=== PATIENT | male | born 1960 | race Caucasian/White ===

== ENCOUNTER 2017-11-25 16:15 | Inpatient (IN) | payer BC, OTHER ==
[2017-11-25] MEDS ORDERED: SODIUM CHLORIDE 0.9% 1,000 ML IV STA (17:44)
--- NOTE | 2017-11-25 18:10 | ED ---
SOB HPI - General Source: patient, RN notes reviewed, old records reviewed Mode of arrival: ambulatory Limitations: no limitations <Krissy Huang - Last Filed: 11/25/17 19:10> <Maximino Pruett - Last Filed: 11/25/17 19:30> - General Chief Complaint: Shortness of Breath Stated Complaint: SOB Time Seen by Provider: 11/25/17 17:22 - History of Present Illness Initial Comments: 57-year-old male presenting emergency department today with chief complaint of shortness of breath on exertion worsening over the past few months. 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 He does not have any annual physicals. Patient states that today he noticed that he has no family history of heart disease that he is aware of. Patient reports that when he was walking up 1 flight of stairs he was extremely winded. Patient reports he's had no cough. Nonsmoker. He reports that on Monday he started to have an episode of diaphoresis and chest heaviness. He was currently in [place] for work so decided to wait until he came to his home to be evaluated. He states that today he has no symptoms including chest pain or shortness of breath however when he was walking to the bathroom he reports he felt really short of breath. Patient denies any recent fever, chills, back pain, abdominal pain, nausea vomiting, numbness or tingling, dysuria or hematuria, constipation or diarrhea, headaches or visual changes, or any other current symptoms (Krissy Huang) - Related Data Previous Rx's Medication Instructions Recorded Ibuprofen [Motrin] 600 mg PO Q8HR PRN #30 tab 04/12/17 Allergies Allergy/AdvReac Type Severity Reaction Status Date / Time aspirin Allergy Anaphylaxis Verified 11/25/17 16:19 Review of Systems ROS Other: All systems not noted in ROS Statement are negative. <Krissy Huang - Last Filed: 11/25/17 19:10> ROS Other: All systems not noted in ROS Statement are negative. <Maximino Pruett - Last Filed: 11/25/17 19:30> ROS Statement: Those systems with pertinent positive or pertinent negative responses have been documented in the HPI. Past Medical History Past Medical History: No Reported History History of Any Multi-Drug Resistant Organisms: None Reported Past Surgical History: Orthopedic Surgery Past Psychological History: No Psychological Hx Reported Smoking Status: Former smoker Past Alcohol Use History: Occasional Past Drug Use History: None Reported <Krissy Huang - Last Filed: 11/25/17 19:10> General Exam Limitations: no limitations General appearance: alert, in no apparent distress Head exam: Present: atraumatic, normocephalic, normal inspection Eye exam: Present: normal appearance, PERRL, EOMI. Absent: scleral icterus, conjunctival injection, periorbital swelling ENT exam: Present: normal exam, mucous membranes moist Neck exam: Present: normal inspection Respiratory exam: Present: normal lung sounds bilaterally. Absent: respiratory distress, wheezes, rales, rhonchi, stridor Cardiovascular Exam: Present: regular rate, normal rhythm, normal heart sounds. Absent: systolic murmur, diastolic murmur, rubs, gallop, clicks GI/Abdominal exam: Present: soft, normal bowel sounds. Absent: distended, tenderness, guarding, rebound, rigid Extremities exam: Present: normal inspection, full ROM, normal capillary refill. Absent: tenderness, pedal edema, joint swelling, calf tenderness Back exam: Present: normal inspection Neurological exam: Present: alert, oriented X3, CN II-XII intact Psychiatric exam: Present: normal affect, normal mood <Krissy Huang - Last Filed: 11/25/17 19:10> <Maximino Pruett - Last Filed: 11/25/17 19:30> - General Exam Comments Initial Comments: 57-year-old male. (Krissy Huang) Course <Krissy Huang - Last Filed: 11/25/17 19:10> <Maximino Pruett - Last Filed: 11/25/17 19:30> Vital Signs 11/25/17 11/25/17 11/25/17 16:17 18:04 19:11 Temperature 98.1 F 98.0 F Pulse Rate 57 L 50 L 52 L Respiratory 20 18 18 Rate Blood Pressure 119/67 119/71 116/67 O2 Sat by Pulse 97 98 96 Oximetry - Reevaluation(s) Reevaluation #1: 11/25/17 19:29 I did personally do a [id number] evaluation the patient did discuss the findings with him. Patient does demonstrate evidence of coronary artery disease. Patient will be admitted I did discuss case with Dr. Reid. (Maximino Pruett) Medical Decision Making - Lab Data Result diagrams: 11/25/17 18:00 11/25/17 18:00 - Radiology Data Radiology results: report reviewed <Krissy Huang - Last Filed: 11/25/17 19:10> - Lab Data Result diagrams: 11/25/17 18:00 11/25/17 18:00 <Maximino Pruett - Last Filed: 11/25/17 19:30> - Medical Decision Making 57-year-old male was x-rays from today with chief complaint of progressive dyspnea on exertion. Patient ports is been worse for the past week. Patient had an episode of chest heaviness on Monday. 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 Patient at this time denies any significant shortness of breath while resting in bed. However when he walked to the bathroom he was quite winded. Patient's vital signs have been stable. Heart rate seems to be somewhat low in the 55 beats per minute. Patient has had no previous cardiac examination including stress test. protonix. At this time with the risk factor of being a over age 50 and the concerning signs of dyspnea on exertion and left-sided chest heaviness would like to admit the Patient for observation for further evaluation and cardiology workup. Patient case discussed with Dr. Pruett who discussed the case with Dr. Reid. (Krissy Huang) - Lab Data Lab Results 11/25/17 11/25/17 11/25/17 Range/Units 18:00 18:00 18:00 WBC 5.4 (3.8-10.6) k/uL RBC 4.31 (4.30-5.90) m/uL Hgb 13.3 (13.0-17.5) gm/dL Hct 40.0 (39.0-53.0) % MCV 92.9 (80.0-100.0) fL MCH 30.9 (25.0-35.0) pg MCHC 33.2 (31.0-37.0) g/dL RDW 12.5 (11.5-15.5) % Plt Count 232 (150-450) k/uL Neutrophils % 53 % Lymphocytes % 38 % Monocytes % 4 % Eosinophils % 3 % Basophils % 0 % Neutrophils # 2.8 (1.3-7.7) k/uL Lymphocytes # 2.1 (1.0-4.8) k/uL Monocytes # 0.2 (0-1.0) k/uL Eosinophils # 0.2 (0-0.7) k/uL Basophils # 0.0 (0-0.2) k/uL PT (9.0-12.0) sec INR (<1.2) APTT (22.0-30.0) sec D-Dimer (<0.60) mg/L FEU Sodium 140 (137-145) mmol/L Potassium 4.5 (3.5-5.1) mmol/L Chloride 110 H (98-107) mmol/L Carbon Dioxide 21 L (22-30) mmol/L Anion Gap 9 mmol/L BUN 31 H (9-20) mg/dL Creatinine 1.40 H (0.66-1.25) mg/dL Est GFR (CKD-EPI)AfAm 64 (>60 ml/min/1.73 sqM) Est GFR (CKD-EPI)NonAf 56 (>60 ml/min/1.73 sqM) Glucose 93 (74-99) mg/dL Calcium 9.2 (8.4-10.2) mg/dL Magnesium 2.0 (1.6-2.3) mg/dL Total Bilirubin 0.8 (0.2-1.3) mg/dL AST 25 (17-59) U/L ALT 28 (21-72) U/L Alkaline Phosphatase 37 L (38-126) U/L Total Creatine Kinase 215 H (55-170) U/L CK-MB (CK-2) 1.4 (0.0-2.4) ng/mL CK-MB (CK-2) Rel Index 0.7 Troponin I <0.012 (0.000-0.034) ng/mL NT-Pro-B Natriuret Pep pg/mL Total Protein 6.5 (6.3-8.2) g/dL Albumin 3.8 (3.5-5.0) g/dL Urine Color Urine Appearance (Clear) Urine pH (5.0-8.0) Ur Specific [place] (1.001-1.035) Urine Protein (Negative) Urine Glucose (UA) (Negative) Urine Ketones (Negative) Urine Blood (Negative) Urine Nitrite (Negative) Urine Bilirubin (Negative) Urine Urobilinogen (<2.0) mg/dL Ur Leukocyte Esterase (Negative) Urine WBC (0-5) /hpf Ur Squamous Epith Cells (0-4) /hpf Amorphous Sediment (None) /hpf Urine Mucus (None) /hpf 11/25/17 11/25/17 11/25/17 Range/Units 18:00 18:00 18:25 WBC (3.8-10.6) k/uL RBC (4.30-5.90) m/uL Hgb (13.0-17.5) gm/dL Hct (39.0-53.0) % MCV (80.0-100.0) fL MCH (25.0-35.0) pg MCHC (31.0-37.0) g/dL RDW (11.5-15.5) % Plt Count (150-450) k/uL Neutrophils % % Lymphocytes % % Monocytes % % Eosinophils % % Basophils % % Neutrophils # (1.3-7.7) k/uL Lymphocytes # (1.0-4.8) k/uL Monocytes # (0-1.0) k/uL Eosinophils # (0-0.7) k/uL Basophils # (0-0.2) k/uL PT 10.3 (9.0-12.0) sec INR 1.1 (<1.2) APTT 22.7 (22.0-30.0) sec D-Dimer 0.55 (<0.60) mg/L FEU Sodium (137-145) mmol/L Potassium (3.5-5.1) mmol/L Chloride (98-107) mmol/L Carbon Dioxide (22-30) mmol/L Anion Gap mmol/L BUN (9-20) mg/dL Creatinine (0.66-1.25) mg/dL Est GFR (CKD-EPI)AfAm (>60 ml/min/1.73 sqM) Est GFR (CKD-EPI)NonAf (>60 ml/min/1.73 sqM) Glucose (74-99) mg/dL Calcium (8.4-10.2) mg/dL Magnesium (1.6-2.3) mg/dL Total Bilirubin (0.2-1.3) mg/dL AST (17-59) U/L ALT (21-72) U/L Alkaline Phosphatase (38-126) U/L Total Creatine Kinase (55-170) U/L CK-MB (CK-2) (0.0-2.4) ng/mL CK-MB (CK-2) Rel Index Troponin I (0.000-0.034) ng/mL NT-Pro-B Natriuret Pep 184 pg/mL Total Protein (6.3-8.2) g/dL Albumin (3.5-5.0) g/dL Urine Color Yellow Urine Appearance Turbid (Clear) Urine pH 5.5 (5.0-8.0) Ur Specific [place] 1.030 (1.001-1.035) Urine Protein Trace H (Negative) Urine Glucose (UA) Negative (Negative) Urine Ketones Trace H (Negative) Urine Blood Negative (Negative) Urine Nitrite Negative (Negative) Urine Bilirubin Negative (Negative) Urine Urobilinogen 3.0 (<2.0) mg/dL Ur Leukocyte Esterase Negative (Negative) Urine WBC 1 (0-5) /hpf Ur Squamous Epith Cells <1 (0-4) /hpf Amorphous Sediment Rare H (None) /hpf Urine Mucus Rare H (None) /hpf 11/25/17 18:10 EKG shows sinus bradycardia otherwise normal EKG. Ventricular rate of 53 bpm. Was 132. QRS duration 88 ms. QT QTc is 414/388. (Krissy Huang) - Radiology Data Chest x-rays negative for any acute crying upon my process. (Krissy Huang) Disposition Is patient prescribed a controlled substance at d/c from ED?: No When asked, does pt state using other controlled substances?: No If prescribed controlled substance>3 days was MAPS reviewed?: No If opioid is for acute pain is fill amount 7 days or less?: No If Rx opioid, was Start Talking consent form obtained?: No Time of Disposition: 19:13 <Krissy Huang - Last Filed: 11/25/17 19:10> <Maximino Pruett - Last Filed: 11/25/17 19:30> Clinical Impression: Dyspnea on exertion Disposition: ADMITTED IP TO THIS HOSP Condition: Stable Referrals: Stephy Frederick MD [Primary Care Provider] - 1-2 days
[2017-11-25 18:18] LABS: Basophils % (A) 0 %; Eosinophils # (A) 0.2 k/uL (0-0.7); Eosinophils % (A) 3 %; HGB 13.3 gm/dL (13.0-17.5); Lymphocytes # (A) 2.1 k/uL (1.0-4.8); Lymphocytes % (A) 38 %; MCH 30.9 pg (25.0-35.0); MCHC 33.2 g/dL (31.0-37.0); MCV 92.9 fL (80.0-100.0); Mean Platelet Volume 7.7; Monocytes # (A) 0.2 k/uL (0-1.0); Monocytes % (A) 4 %; Neutrophils # (A) 2.8 k/uL (1.3-7.7); Neutrophils % (A) 53 %; Platelet Count 232 k/uL (150-450); RBC 4.31 m/uL (4.30-5.90); RDW 12.5 % (11.5-15.5); WBC 5.4 k/uL (3.8-10.6)
--- NOTE | 2017-11-25 18:24 | XR ---
EXAMINATION TYPE: XR chest 2V DATE OF EXAM: 11/25/2017 COMPARISON: 12/22/2014 HISTORY: Difficulty breathing TECHNIQUE: Frontal and lateral views of the chest are obtained. FINDINGS: There is no focal air space opacity, pleural effusion, or pneumothorax seen. The cardiac silhouette size is within normal limits. The osseous structures are intact. Mild multilevel degener ative changes of thoracic spine are noted. Posttraumatic changes of the distal left clavicle are unch anged from the prior and healed. Prior fracture deformity of multiple right ribs are also seen. IMPRESSION: No acute cardiopulmonary process.
[2017-11-25 18:28] LABS: Albumin 3.8 g/dL (3.5-5.0); Calcium 9.2 mg/dL (8.4-10.2); Potassium 4.5 mmol/L (3.5-5.1); Total Bilirubin 0.8 mg/dL (0.2-1.3); Total Protein 6.5 g/dL (6.3-8.2)
[2017-11-25 18:32] LABS: INR 1.1 (<1.2)
[2017-11-25 18:33] LABS: D-Dimer 0.55 mg/L FEU (<0.60); Partial Thromboplastin Time 22.7 sec (22.0-30.0); Prothrombin Time 10.3 sec (9.0-12.0)
[2017-11-25 18:39] LABS: Amorphous Sediment,Urine Rare /hpf; Appearance,Urine Turbid (Clear); Bilirubin,Urine Negative (Negative); Blood,Urine Negative (Negative); Color,Urine Yellow; Glucose,Urine (UA) Negative (Negative); Ketones,Urine Trace (Negative); Leukocyte Esterase,Urine Negative (Negative); Mucus,Urine Rare /hpf; Nitrite,Urine Negative (Negative); PH, Urine 5.5 (5.0-8.0); Protein,Urine Trace (Negative); Squamous Epithelial Cell,Urine <1 /hpf (0-4); WBC,Urine 1 /hpf (0-5)
[2017-11-25 18:41] LABS: Creatine Kinase 215 U/L (55-170)
[2017-11-25 18:54] LABS: Creatine Kinase MB 1.4 ng/mL (0.0-2.4); Troponin I <0.012 ng/mL (0.000-0.034)
[2017-11-25] MEDS ORDERED: NITROGLYCERIN SL TABS 0.4 MG TAB SUBLINGUAL PRN (19:13)
[2017-11-25 21:09] VITALS: BMI 28.2
[2017-11-26 00:26] LABS: Creatine Kinase 169 U/L (55-170)
[2017-11-26 00:39] LABS: Creatine Kinase MB 1.1 ng/mL (0.0-2.4); Troponin I <0.012 ng/mL (0.000-0.034)
[2017-11-26 07:35] LABS: Cholesterol 194 mg/dL (<200); HDL Cholesterol 31 mg/dL (40-60); LDL Cholesterol,Calculated 109 mg/dL (0-99); Triglycerides 269 mg/dL (<150)
[2017-11-26 07:41] LABS: Creatine Kinase 136 U/L (55-170)
[2017-11-26 07:54] LABS: Creatine Kinase MB 1.1 ng/mL (0.0-2.4); Troponin I <0.012 ng/mL (0.000-0.034)
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
[2017-11-26 08:59] LABS: Calcium 8.9 mg/dL (8.4-10.2); Potassium 4.3 mmol/L (3.5-5.1)
[2017-11-26] MEDS ORDERED: ASPIRIN 325 MG TAB PO SCH (09:00)
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
[2017-11-26] MEDS ORDERED: ACETAMINOPHEN TAB 325 MG TAB PO PRN (17:59)
[2017-11-26] MEDS: ENOXAPARIN 40 MG/0.4 ML SYRINGE SQ SCH (18:12)
--- NOTE | 2017-11-27 09:59 | ECHOF ---
Referral Reason:dyspnea MEASUREMENTS -------- HEIGHT: 188.0 cm WEIGHT: 99.8 kg BP: 104/46 RVIDd: 3.3 cm (< 3.3) IVSd: 0.9 cm (0.6 - 1.1) LVIDd: 4.8 cm (3.9 - 5.3) LVPWd: 1.0 cm (0.6 - 1.1) IVSs: 1.6 cm LVIDs: 3.0 cm LVPWs: 1.3 cm LA Diam: 3.6 cm (2.7 - 3.8) LAESV Index (A-L): 35.95 ml/m Ao Diam: 3.3 cm (2.0 - 3.7) AV Cusp: 2.3 cm (1.5 - 2.6) MV EXCURSION: 19.089 mm (> 18.000) MV EF SLOPE: 142 mm/s (70 - 150) EPSS: 0.6 cm MV E Den: 0.92 m/s MV DecT: 193 ms MV A Den: 0.72 m/s MV E/A Ratio: 1.28 RAP: 5.00 mmHg RVSP: 36.80 mmHg FINDINGS -------- Sinus rhythm. This was a technically good study. The left ventricular size is normal. Left ventricular wall thickness is normal. Overall left vent ricular systolic function is normal with, an EF between 60 - 65 %. The right ventricle is mildly enlarged. LA is moderately dilated 34-39 ml/m2 The right atrium is normal in size. The aortic valve is trileaflet and appears structurally normal. There is trace mitral regurgitation. Mild tricuspid regurgitation present. There is mild pulmonary hypertension. The right ventricular systolic pressure, as measured by Doppler, is 36.80mmHg. Trace/mild (physiologic) pulmonic regurgitation. The aortic root size is normal. Normal inferior vena cava with normal inspiratory collapse consistent with estimated right atrial pre ssure of 5 mmHg. The inferior vena cava is mildly dilated. There is no pericardial effusion. CONCLUSIONS -------- 1. Sinus rhythm. 2. This was a technically good study. 3. The left ventricular size is normal. 4. Left ventricular wall thickness is normal. 5. Overall left ventricular systolic function is normal with, an EF between 60 - 65 %. 6. The right ventricle is mildly enlarged. 7. LA is moderately dilated 34-39 ml/m2 8. The right atrium is normal in size. 9. The aortic valve is trileaflet and appears structurally normal. 10. There is trace mitral regurgitation. 11. Mild tricuspid regurgitation present. 12. There is mild pulmonary hypertension. 13. The right ventricular systolic pressure, as measured by Doppler, is 36.80mmHg. 14. Trace/mild (physiologic) pulmonic regurgitation. 15. The aortic root size is normal. 16. Normal inferior vena cava with normal inspiratory collapse consistent with estimated right atrial pressure of 5 mmHg. 17. The inferior vena cava is mildly dilated. 18. There is no pericardial effusion. TRAVEL SERVICE CONSULTANT: Gemma Shields RDCS
[2017-11-27] MEDS: ENOXAPARIN 40 MG/0.4 ML SYRINGE SQ SCH (10:04)
--- NOTE | 2017-11-27 10:37 | ECHOS ---
STRESS ECHOCARDIOGRAM DATE OF SERVICE: 11/27/2017 INDICATIONS: Chest pain. MEDICATIONS: BASELINE HEART RATE: 61 BASELINE BLOOD PRESSURE: 104/46 MAXIMUM HEART RATE: 148 MAXIMUM BLOOD PRESSURE: 144/41 85% MPHR: 139 100% MPHR: 163 METS: 10 MAXIMUM STAGE REACHED: III TOTAL EXERCISE TIME: 9 minutes CLINICAL INFORMATION: Baseline EKG shows sinus rhythm, normal axis, normal intervals. Patient exercised on Jovani protocol for a total of 9 minutes achieving 10 METs, 91% of predicted maximal heart rate without chest pain. At peak exercise, there was [address]-segment depression in the inferolateral leads. The test was stopped due to shortness of breath. Baseline echo shows normal left ventricular size, wall motion and systolic function. Postexercise there is normal hyperdynamic response of all segments of myocardium noted. CONCLUSIONS: 1. Good exercise tolerance. 2. Abnormal stress test by EKG criteria. 3. No exercise-induced wall motion abnormalities. MMODL / IJN: [id number] /
--- NOTE | 2017-11-27 10:50 | P.PN ---
Subjective Mr. Shah is seen and examined in no acute distress. He denies any further symptoms of chest pain or shortness of breath since admission. Telemetry tracings have been unremarkable. Cardiac enzymes negative 3, repeat creatinine 1.16. LDL 109, HDL 31, triglycerides 269 and total cholesterol 194. Blood pressure 134/75 heart rate 54 afebrile maintaining oxygen saturation on room air. Stress echocardiogram this morning. During his test he developed ST depression in the lateral leads with shortness of breath, echocardiogram images were normal indicating an abnormal stress test by EKG criteria with normal wall motion. Objective - Vital Signs Vital signs: Vital Signs Temp 97.5 F L 11/27/17 08:38 Pulse 54 L 11/27/17 08:38 Resp 18 11/27/17 08:38 BP 134/75 11/27/17 08:38 Pulse Ox 98 11/27/17 08:38 Intake & Output 11/26/17 11/27/17 11/27/17 18:59 06:59 18:59 Intake Total 680 Balance 680 Weight 99.79 kg Intake: Oral 480 Other 200 Other: Voiding Method Toilet Toilet Toilet # Voids 1 - Exam GENERAL: Well-appearing, well-nourished and in no acute distress. NECK: Supple without JVD or thyromegaly. LUNGS: Breath sounds clear to auscultation bilaterally. Respiration equal and unlabored. No wheezes, rales or rhonchi. HEART: Regular rate and rhythm without murmurs, rubs or gallops. S1 and S2 heard. EXTREMITIES: Normal range of motion, no edema. No clubbing or cyanosis. Peripheral pulses intact. - Labs CBC & Chem 7: 11/25/17 18:00 11/26/17 07:09 Assessment and Plan Assessment: ASSESSMENT Unstable angina, acute coronary event has been ruled out. Acute kidney injury, resolved. Dyslipidemia PLAN Stress test results indicate no wall motion abnormality post-exercise. Stable for discharge home with prescription for SL nitro and follow up appointment with Dr. Rodriguez made for Monday at 4pm. Nurse Practitioner note has been reviewed, I agree with a documented findings and plan of care. Patient was seen and examined.
[2017-11-27 12:03] VITALS: BP 118/76; PULSE 62; RESP 16; TEMP 97.9
--- NOTE | 2017-11-27 14:00 | P.DS ---
Providers Date of admission: 11/25/17 19:29 Expected date of discharge: 11/27/17 Attending physician: Margarito Reid Consults: 11/25/17 19:13 Consult Physician Urgent Consulting Provider: Kris Rodriguez Consult Reason/Comments: Unstable Angina, Dyspnea on Exertion Do you want consulting provider notified?: Yes Primary care physician: Stephy Frederick Hospital Course: Discharge diagnosis 1. Chest pain likely related to unstable angina, acute coronary event has been ruled out. Troponins negative 3 sets. Patient underwent stress echo which showed no wall motion abnormality. It did show abnormal stress test by EKG criteria. Noted a [address] segment depression in the inferior lateral leads. Patient has been seen evaluated by cardiology there is no evidence of an acute CA. They have cleared him for discharge and he'll follow up with Dr. Rodriguez on Monday. A break given him a prescription for nitro 2. Acute kidney injury possibly related to dehydration and NSAIDs. Discontinue Motrin. Improved with IV fluids 3. Hyperlipidemia: Recommend lifestyle modifications such as a low-cholesterol diet and increasing exercise activity to decrease LDL cholesterol. LDL 109 HCL 31 cholesterol 194 triglycerides 269 Hospital course Mr. Shah is a pleasant 57 year old male with no significant past medical history. He denies coronary artery disease, hypertension, dyslipidemia or diabetes mellitus. He is a nonsmoker and takes no daily medications. We've been asked to see him in consultation for symptoms of chest pain. He complains of exertional shortness of breath and chest pressure intermittently over the previous month. His symptoms have been getting progressively worse. On Monday in particular he was working and he felt intense shortness of breath, dizziness and pressure in his chest. He describes as a feeling of somebody stepping on his chest. His symptoms are associated with exertion and when he sits down to rest his symptoms seem to improve. He denies associated palpitations, nausea, vomiting or diaphoresis. He also denies PND or orthopnea. There is no radiation of the pain to the arm, neck, back or jaw. He 's had no further symptoms of chest discomfort, shortness of breath or dizziness since admission. Telemetry tracings have been unremarkable. Vital signs have been stable. EKG is bradycardia heart rate in the 50s. Chest x-ray is negative for an acute cardiopulmonary process. Laboratory data reviewed, cardiac enzymes negative 3, d-dimer normal, LDL 109, creatinine 1.4. When compared to old laboratory data he had a normal renal function in 2015. Patient's chest pain shortness breath have resolved. Patient seen evaluated by cardiology felt the patient may have unstable angina. Patient underwent a stress echo showing no stiff Gentz wall abnormality. There were some EKG changes. Patient will be followed closely by cardiology in the outpatient setting. Patient has an appointment with cardiology on Monday. Also note echo showed EF of 60-65%. Patient is medically stable for discharge. Please refer to chart for any further details. I performed an examination of the patient and discussed their management with the physician Knocker Off. I have reviewed the Physician Knocker Off's notes and agree with the documented findings and plan of care Patient Condition at Discharge: Stable Plan - Discharge Summary Discharge Rx Participant: Yes New Discharge Prescriptions: New Nitroglycerin Sl Tabs [Nitrostat] 0.4 mg SUBLINGUAL Q5M PRN #1 bottle PRN Reason: Chest pain Discontinued Ibuprofen [Motrin] 600 mg PO Q8HR PRN #30 tab PRN Reason: Pain Discharge Medication List Nitroglycerin Sl Tabs [Nitrostat] 0.4 mg SUBLINGUAL Q5M PRN #1 bottle 11/27/17 [ Rx] Follow up Appointment(s)/Referral(s): Kris Rodriguez MD [STAFF PHYSICIAN] - 11/29/17 4:00 pm Stephy Frederick MD [Primary Care Provider] - 1 Week Patient Instructions/Handouts: Chest Pain (GEN), Dyspnea (GEN) Activity/Diet/Wound Care/Special Instructions: Diet: cardiac Activity: as tolerated Discharge Disposition: HOME SELF-CARE
== END 2017-11-27 14:03 | disposition home or self-care (01) | DRG 311 ==
LOC: EC 16:15 → 3SUR 19:13 → OBSVTOIN 19:29 → 3SUR 20:35 → 3OBS 11-27 07:51
PROVIDERS: ADMIT Internal Medicine; ATTEND Internal Medicine
DX: I20.0 Unstable angina (principal); N17.9 Acute kidney failure, unspecified; R06.00 Dyspnea, unspecified; E78.5 Hyperlipidemia, unspecified; E86.0 Dehydration; T39.395A Adverse effect of other nonsteroidal anti-inflammatory drugs [NSAID], initial encounter; Z87.891 Personal history of nicotine dependence; Z83.3 Family history of diabetes mellitus
CPT/HCPCS: 36415; 71046; 80048; 80053; 80061; 81001; 82550; 82553; 83735; 83880; 84484; 85025; 85379; 85610; 85730; 93005; 93306; 93351; 96360; 99285

== ENCOUNTER 2017-12-08 06:18 | Day surgery (SDC) | payer BC ==
[2017-12-04 14:21] VITALS: BMI 28.8
[2017-12-08] MEDS ORDERED: ALPRAZolam 0.25 MG TAB PO PRN (06:21)
[2017-12-08] MEDS ORDERED: SODIUM CHLORIDE 0.9% 1,000 ML in EMPTY BAG 1 BAG IV ONE (06:21)
[2017-12-08] MEDS ORDERED: ALPRAZolam 0.5 MG TAB PO PRN (06:21)
[2017-12-08] MEDS ORDERED: NITROGLYCERIN SL TABS 0.4 MG TAB SUBLINGUAL PRN ×2 (06:21→08:45)
[2017-12-08] MEDS ORDERED: ATORVASTATIN 80 MG TAB PO ONE (07:00)
[2017-12-08] MEDS ORDERED: diphenhydrAMINE 50 MG/ML 1 ML VIAL ONE (07:38)
[2017-12-08] MEDS ORDERED: fentaNYL (PF) 50 MCG/ML 2 ML AMP ONE (07:38)
[2017-12-08] MEDS ORDERED: VERAPAMIL 2.5 MG/ML 2 ML AMP ONE (07:38)
[2017-12-08] MEDS ORDERED: fentaNYL (PF) 50 MCG/ML 2 ML AMP IV ONE (07:45)
[2017-12-08] MEDS ORDERED: diphenhydrAMINE 50 MG/ML 1 ML VIAL IVP ONE (07:45)
[2017-12-08] MEDS ORDERED: MIDAZOLAM 2 MG/2 ML VIAL ONE (07:46)
[2017-12-08] MEDS ORDERED: LIDOCAINE 2% INJ 20 MG/ML SQ ONE (07:47)
[2017-12-08] MEDS ORDERED: MIDAZOLAM 2 MG/2 ML VIAL IV ONE (07:48)
[2017-12-08] MEDS ORDERED: VERAPAMIL SYRINGE (5 MG/10 ML) INTRAARTER ONE (07:49)
[2017-12-08] MEDS ORDERED: TICAGRELOR 90 MG TAB ONE (07:57)
[2017-12-08] MEDS ORDERED: IOPAMIDOL-370 50ML BTL INJ ONE (08:00)
[2017-12-08] MEDS ORDERED: TICAGRELOR 90 MG TAB PO ONE (08:05)
[2017-12-08] MEDS ORDERED: BIVALIRUDIN BOLUS 250 MG/50 ML IV ONE (08:06)
[2017-12-08] MEDS ORDERED: ASPIRIN 81 MG ONE (08:08)
[2017-12-08] MEDS ORDERED: ASPIRIN 81 MG PO ONE (08:10)
[2017-12-08] MEDS ORDERED: BIVALIRUDIN 250 MG in SODIUM CHLORIDE 0.9% 50 ML IV ONE (08:11)
[2017-12-08] MEDS ORDERED: NITROGLYCERIN 1000MCG/10ML SYRINGE INTRACORON ONE (08:13)
[2017-12-08] MEDS ORDERED: IOPAMIDOL-370 125ML BTL INJ ONE (08:20)
[2017-12-08] MEDS ORDERED: IOPAMIDOL-370 100ML BTL INJ ONE (08:30)
[2017-12-08] MEDS ORDERED: ATROPINE SULFATE 0.1 MG/ML 10ML SYRINGE IV PRN (08:45)
[2017-12-08] MEDS ORDERED: SODIUM CHLORIDE 0.9% 1,000 ML IV SCH (08:45)
[2017-12-08] MEDS ORDERED: MAG HYDROX/AL HYDROX/SIMETH 30 ML CUP PO PRN (08:45)
[2017-12-08] MEDS ORDERED: ZOLPIDEM 5 MG TAB PO PRN (08:45)
[2017-12-08] MEDS ORDERED: RX INFO: IV CONTRAST WAS GIVEN 1 EACH MISC MISCELLANE PRN (08:45)
--- NOTE | 2017-12-08 09:09 | CC ---
CARDIAC CATHETERIZATION REPORT Mr. Shah is a 57-year-old male who has been complaining of symptoms of progressive dyspnea and episode of chest discomfort. He underwent a stress test where he had a [address]-segment depression at peak exercise. He had no evidence of segmental wall motion abnormality on his echo, but because of his persistent symptoms recommendation was made regarding cardiac catheterization. The procedure as well as the risks and the complication were discussed with the patient who is in full understanding and agreement. 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 Using Xylocaine anesthesia in the Seldinger technique, 6-Sri [place]ankan sheath was introduced in the right radial artery. Selective right and left coronary angiography performed using 5-Sri [place]ankan 3.5 bend right and left Juan catheters. Multiple views of the coronary artery including hemiaxial views were obtained. Following that, a 5-S[place]ankan tight pigtail catheter was introduced in the left ventricle and a 30-degree DAUGHERTY view of the left ventricle was obtained. Following that, catheters were removed. Images were reviewed. FINDINGS: LEFT MAIN: This is a large-sized vessel bifurcating left circumflex, left anterior descending artery. Left main coronary artery has no evidence of high-grade stenosis. LEFT ANTERIOR DESCENDING ARTERY: This is a large-sized vessel reaching toward the apex, tapers down the distal third giving rise to 2 diagonal branches. Proximal LAD at the takeoff of the first septal superintendent general has a 70% stenosis. There is another 80% stenosis at the takeoff of the first diagonal branch. The rest of the vessel has no high-grade stenosis. LEFT CIRCUMFLEX: This is a nondominant vessel giving rise to 2 obtuse marginal branches. The first obtuse marginal branch proximal segment has about 30% to 40% plaque. The second obtuse marginal branch is small without any evidence of high-grade stenosis. RIGHT CORONARY ARTERY: This is a large dominant vessel bifurcating PDA and posterolateral segment branches the right PDA reaches toward the inferoapical wall. The right coronary artery in mid segment has mild intimal disease. The PDA in the mid segment has a 50% to 60% plaque. The rest of the vessel has no evidence of high-grade stenosis. LEFT VENTRICULOGRAM: Left ventriculogram is performed in 30-degree DAUGHERTY view and revealed normal left ventricular size and systolic function. Ejection fraction is 60%. There was no significant mitral regurgitation. HEMODYNAMICS: There was no gradient across the aortic valve. The left ventricular end- diastolic pressure was 14 to 16 mmHg. CONCLUSION: 1. Significant stenosis in the proximal and mid left anterior descending artery. 2. Moderate disease in the right PDA. 3. Mild disease in the first obtuse marginal branch. 4. Normal left ventricular size and systolic function. RECOMMENDATION: In view of finding anatomy, I recommend proceeding with angioplasty and stenting. The procedure as well as the risks and complications were discussed with the patient who is in full understanding and agreement. MMODL / IJN: [id number] /
--- NOTE | 2017-12-08 09:15 | PTCA ---
PERCUTANEOUSTRANS CORORONARY ANGIOGRAPHY Mr. Shah is a 57-year-old male who presented with symptoms of progressive dyspnea and chest discomfort, had an abnormal stress electrocardiogram, underwent a coronary angiography was found to have critical stenosis involving the proximal and mid LAD. In view of that, recommendation was made regarding angioplasty and stenting. The procedure as well as the risks and the complications were discussed with the patient who is in full understanding and agreement. PROCEDURE: A 6-Japanese EBU 3.75 guiding catheter in the system. After cannulating the left main a 0.014 balanced medium weight J-wire was advanced across the lesion and positioned distally. Then a 2.5 x 15 mm Xience Alpine stent was deployed in the mid segment and postdilated at 14 atmospheres. Following that the balloon was removed then a 2.5 x 15 mm Xience Alpine stent was deployed in the proximal segment and postdilated 16 atmospheres. After the last inflation, after appropriate wait, the balloon and the guidewire were withdrawn back in the guiding catheter. Images were obtained, repeated. Those images reveal stable successful stenting. At that point, the guiding catheter, the balloon and the guidewire were removed. The sheath was removed. Hemostasis was obtained with deployment of a TR band. There was no immediate complication. Patient was returned to his room in stable condition. Of note, the patient received Angiomax per protocol as well as oral loading dose of Brilinta. He had chest discomfort and EKG changes with the inflation that resulted at the end of the procedure. He received intra-arterial verapamil at the start of the procedure. RESULTS: Successful stenting of the proximal left anterior descending artery with reduction of stenosis of 70% to 0% and successful stenting of the mid left anterior descending artery with reduction of stenosis from 80% to 0%. RECOMMENDATION: Patient will be continued on aspirin, Brilinta, and statin. The importance of dual antiplatelet treatment was discussed with the patient who is in full understanding and agreement. The patient carries a diagnosis of aspirin allergy over 20 years ago. 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 We will continue to observe that very closely. DURATION OF PROCEDURE: 45 minutes. MMODL / IJN: [id number] /
[2017-12-08] MEDS ORDERED: ATORVASTATIN 80 MG TAB PO SCH (21:00)
[2017-12-08] MEDS: TICAGRELOR 90 MG TAB PO SCH (21:21)
[2017-12-09 06:17] LABS: Calcium 8.8 mg/dL (8.4-10.2); Potassium 4.1 mmol/L (3.5-5.1)
[2017-12-09 07:37] VITALS: BP 138/84; PULSE 72; RESP 18; TEMP 97.1
[2017-12-09] MEDS: TICAGRELOR 90 MG TAB PO SCH (08:17)
[2017-12-09] MEDS ORDERED: ASPIRIN 81 MG PO SCH (09:00)
--- NOTE | 2017-12-09 10:07 | PN ---
PROGRESS NOTE Mr. Shah is a 57-year-old male who presented with an abnormal stress echocardiogram, symptoms of dyspnea and chest discomfort, underwent a cardiac catheterization, was found to have critical stenosis in the proximal mid LAD, underwent successful stenting of that vessel. He is doing well this morning. Ambulating without difficulty. He feels that his breathing and chest feels better compared with the prior to the intervention. He is continued on aspirin once a day 81 mg, Lipitor 80 mg, Brilinta 90 mg twice a day. PHYSICAL EXAMINATION: Blood pressure 138/80 with a heart in 60s. LUNGS: Clear. HEART: Regular rate and rhythm. S1, S2. No S3. No rub. ABDOMEN: Soft, nontender. EXTREMITIES: No edema. Right radial pulse intact. EKG revealed no acute changes. LAB DATA: BUN and creatinine of 17 and 1.2. Potassium 4.1. IMPRESSION: 1. Status post stenting of the LAD. 2. Hyperlipidemia. RECOMMENDATION: Patient will be discharged home today and followed as an outpatient. MMODL / SARAHN: [id number] /
== END 2017-12-09 09:37 | disposition home or self-care (01) ==
LOC: CATHCVL 06:18 → 6SEL 08:30 → CATHCVL 12-09 09:37
PROVIDERS: ATTEND Internal Medicine Interventional Cardiology
DX: I25.10 Atherosclerotic heart disease of native coronary artery without angina pectoris (principal); R00.1 Bradycardia, unspecified; R94.39 Abnormal result of other cardiovascular function study; E78.5 Hyperlipidemia, unspecified; G47.33 Obstructive sleep apnea (adult) (pediatric); F17.210 Nicotine dependence, cigarettes, uncomplicated; Z79.899 Other long term (current) drug therapy; Z88.6 Allergy status to analgesic agent; Z88.8 Allergy status to other drugs, medicaments and biological substances
CPT/HCPCS: 93458; 85347; 80048; C9600; C1769; C1887; C1874; J2001; J2250; J1200; J3010; J0583; Q9967 ×3

== ENCOUNTER → 2017-12-27 | Outpatient (CLI) | payer BC ==
[2017-12-27 09:54] LABS: Albumin 4.1 g/dL (3.5-5.0); Calcium 9.3 mg/dL (8.4-10.2); Potassium 4.4 mmol/L (3.5-5.1); Total Bilirubin 1.5 mg/dL (0.2-1.3); Total Protein 7.2 g/dL (6.3-8.2)
== END | disposition home or self-care (01) ==
LOC: LABWHC1 09:03
PROVIDERS: ATTEND Internal Medicine Interventional Cardiology
DX: E78.2 Mixed hyperlipidemia (principal)
CPT/HCPCS: 36415; 80053; 80061

== ENCOUNTER → 2018-08-23 | Outpatient (CLI) | payer BC ==
[2018-08-23 16:10] LABS: Albumin 4.3 g/dL (3.80-4.90); Albumin/Globulin Ratio 1.87 (1.60-3.17); Anion Gap 10.1 mmol/L (4.00-12.00); Calcium 9.5 mg/dL (8.7-10.3); Carbon Dioxide 24.9 mmol/L (21.6-31.8); Globulin 2.3 g/dL (1.6-3.3); LDL Cholesterol,Calculated 93.2 mg/dL (0.0-131.0); Potassium 4.4 mmol/L (3.5-5.5); Total Bilirubin 1.2 mg/dL (0.2-1.2); Total Protein 6.6 g/dL (6.2-8.2); VLDL Calculation 19.8 mg/dL (5.00-40.00)
== END | disposition home or self-care (01) ==
LOC: LABWHC1 08:04
PROVIDERS: ATTEND Internal Medicine Interventional Cardiology
DX: E78.2 Mixed hyperlipidemia (principal)
CPT/HCPCS: 36415; 80053; 80061

== ENCOUNTER → 2019-03-25 | Outpatient (CLI) | payer BC ==
[2019-03-25 11:32] LABS: African American GFR (CKD) 76.8 (60.0-200.0); Albumin/Globulin Ratio 1.74 (1.60-3.17); Anion Gap 6.9 mmol/L (4.00-12.00); BUN/Creat Ratio 16.67 Ratio (12.00-20.00); Calcium 9.3 mg/dL (8.7-10.3); Carbon Dioxide 24.1 mmol/L (21.6-31.8); Chol/HDL Ratio 3.11; Globulin 2.3 g/dL (1.6-3.3); LDL Cholesterol,Calculated 53.2 mg/dL (0.0-131.0); Non-African American GFR(CKD) 66.3 (60.0-200.0); Potassium 4.3 mmol/L (3.5-5.5); Total Bilirubin 1.3 mg/dL (0.2-1.2); Total Protein 6.3 g/dL (6.2-8.2); VLDL Calculation 20.8 mg/dL (5.00-40.00)
== END ==
LOC: LABWHC1 07:23
PROVIDERS: ATTEND Internal Medicine Interventional Cardiology
DX: E78.2 Mixed hyperlipidemia (principal)
CPT/HCPCS: 36415; 80053; 80061

== ENCOUNTER 2019-04-03 07:57 | Day surgery (SDC) | payer BC ==
[~2019-04-03 07:57] MED LIST: ALPRAZolam 0.25 MG TAB PO PRN; ALPRAZolam 0.5 MG TAB PO PRN; ATORVASTATIN 80 MG TAB PO STA; NITROGLYCERIN SL TABS 0.4 MG TAB SUBLINGUAL PRN; SODIUM CHLORIDE 0.9% 1,000 ML in EMPTY BAG 1 BAG IV ONE
[2019-04-03] MEDS ORDERED: SODIUM CHLORIDE 0.9% 1,000 ML IV ONE (08:27)
[2019-04-03 08:28] VITALS: RESP 16
[2019-04-03 08:40] LABS: Basophils # (A) 0.1 k/uL (0-0.2); Basophils % (A) 1 %; Eosinophils # (A) 0.3 k/uL (0-0.7); Eosinophils % (A) 4 %; HCT 43.2 % (39.0-53.0); HGB 15.1 gm/dL (13.0-17.5); Lymphocytes # (A) 2.5 k/uL (1.0-4.8); Lymphocytes % (A) 35 %; MCH 32.6 pg (25.0-35.0); MCV 93.1 fL (80.0-100.0); Monocytes # (A) 0.4 k/uL (0-1.0); Monocytes % (A) 5 %; Neutrophils # (A) 3.9 k/uL (1.3-7.7); Neutrophils % (A) 53 %; Platelet Count 262 k/uL (150-450); RBC 4.63 m/uL (4.30-5.90); WBC 7.3 k/uL (3.8-10.6)
[2019-04-03] MEDS ORDERED: VERAPAMIL 2.5 MG/ML 2 ML AMP ONE (08:43)
[2019-04-03] MEDS ORDERED: fentaNYL (PF) 50 MCG/ML 2 ML AMP ONE (08:43)
[2019-04-03] MEDS ORDERED: HEPARIN SODIUM 1,000 UN/ML (10ML VL) ONE (08:43)
[2019-04-03] MEDS ORDERED: LIDOCAINE 1% INJ 10MG/ML (20 ML MDV) ONE (08:43)
[2019-04-03] MEDS ORDERED: fentaNYL (PF) 50 MCG/ML 2 ML AMP IV ONE (09:30)
[2019-04-03] MEDS ORDERED: LIDOCAINE 1% INJ 10MG/ML (20 ML MDV) SQ ONE (09:34)
[2019-04-03] MEDS ORDERED: VERAPAMIL SYRINGE (5 MG/10 ML) INTRAARTER ONE (09:38)
[2019-04-03] MEDS ORDERED: BIVALIRUDIN BOLUS 250 MG/50 ML IV ONE (09:45)
[2019-04-03] MEDS ORDERED: BIVALIRUDIN 250 MG in SODIUM CHLORIDE 0.9% 50 ML IV ONE (09:48)
[2019-04-03] MEDS ORDERED: IOPAMIDOL-370 125ML BTL INJ ONE (10:02)
[2019-04-03] MEDS ORDERED: ATROPINE SULFATE 0.1 MG/ML 10ML SYRINGE IV PRN (10:18)
[2019-04-03] MEDS ORDERED: ZOLPIDEM 5 MG TAB PO PRN (10:18)
[2019-04-03] MEDS ORDERED: MAG HYDROX/AL HYDROX/SIMETH 30 ML CUP PO PRN (10:18)
[2019-04-03] MEDS ORDERED: RX INFO: IV CONTRAST WAS GIVEN 1 EACH MISC MISCELLANE PRN (10:18)
[2019-04-03] MEDS ORDERED: NITROGLYCERIN SL TABS 0.4 MG TAB SUBLINGUAL PRN (10:18)
[2019-04-03] MEDS ORDERED: SODIUM CHLORIDE 0.9% 1,000 ML IV SCH (10:30)
--- NOTE | 2019-04-03 11:36 | CC ---
CARDIAC CATHETERIZATION REPORT Mr. Shah is a 58-year-old male with known history of coronary artery disease, history of hyperlipidemia, who presented with symptoms of progressive dyspnea on exertion and occasional chest discomfort. In view of that, recommendation made regarding cardiac catheterization, the procedures, risks, and complication were discussed with the patient who is in full understanding and agreement. 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 Using Xylocaine anesthesia and Seldinger technique, a 6-Austrian sheath was introduced in the right radial artery. Selective right and left coronary angiography performed using 5-Austrian 3.5 bend right and left Juan catheter, multiple views of the coronary artery including hemiaxial views were obtained. Following that, a 5-Austrian tight pigtail catheter was introduced in the left ventricle and pressures were calculated. Following that, catheters were removed. Images were reviewed. FINDIN. LEFT MAIN: This is a large-sized vessel bifurcating into left circumflex, left anterior descending artery. Left main coronary artery has no evidence of obstructive coronary artery disease. 2. LEFT ANTERIOR DESCENDING ARTERY: This is a large-sized vessel, tapers down distal third, giving rise to 3 small diagonal branch. The stented segment in the proximal mid LAD are patent. There is mild 10%-20% plaque without any evidence of high-grade stenosis. 3. LEFT CIRCUMFLEX: This is a nondominant vessel, small in caliber, giving rise to one obtuse marginal branch. The proximal segment of the obtuse marginal branch has a 40% plaque. The rest of the vessel has no high-grade stenosis. 4. RIGHT CORONARY ARTERY: This is a large dominant vessel bifurcating distally into PDA and posterolateral segment branches. The mid right coronary artery has a 20% to 30% plaque. The mid distal RCA at the bend has an eccentric 80% plaque. The rest of the vessel has intimal disease without any evidence of high-grade stenosis. 5. LEFT VENTRICULOGRAM: Left ventriculogram is not performed. HEMODYNAMICS: There was no gradient across the aortic valve. The left ventricular end-diastolic pressure was 12-16 mmHg. CONCLUSION: 1. Critical stenosis in the mid distal segment of the right coronary artery. 2. Patent stent of the LAD. 3. Mild disease to moderate disease in the left circumflex. RECOMMENDATION: In view of finding anatomy, I recommend proceeding with angioplasty and stenting of the RCA. The procedures, risks,. and complication were discussed with the patient who is in full understanding and agreement. MMODL / IJN: [id number] /
--- NOTE | 2019-04-03 11:42 | PTCA ---
PERCUTANEOUSTRANS CORORONARY ANGIOGRAPHY Mr. Shah is a 58-year-old male with known history of coronary artery disease who presented with symptoms of progressive dyspnea, underwent cardiac catheterization, was found to have critical stenosis in the mid right coronary artery, and recommendation regarding stenting. The procedures, risks and complication were discussed with the patient who is in full understanding and agreement. PROCEDURE: A 6-Fijian FR4 guiding catheter introduced into the system. after cannulating the right coronary ostium, a 0.014 balanced medium weight J-wire was advanced across the lesion, positioned distally, then a 3.5 x 15 mm Xience Petrona stent was deployed, postdilated at 16 atmospheres. After the last inflation, after appropriate wait, the balloon and the guidewire were withdrawn back in the guiding catheter. Images were obtained and repeated. Those images reveal stable successful stenting. At that point, the guiding catheter, the balloon and the guidewire were removed, the sheath was removed. Hemostasis was obtained with deployment of a TR band. There was no immediate complication. Patient is returned to his room in stable condition. The patient had chest discomfort and EKG changes with the inflation that resolved at the end procedure. Used Angiomax per protocol. RESULTS: Successful stenting of the mid distal segment of the RCA with reduction of stenosis from 80% to 0%. RECOMMENDATION: Patient will be continued on aspirin, Plavix, beta oswald, MARK inhibitor, statin. The importance of dual antiplatelet treatment were discussed with the patient his family and they are in full understanding and agreement. Duration of procedure is 29 minutes. MMYANETH / SARAHN: [id number] /
--- NOTE | 2019-04-03 11:51 | LTR ---
DATE OF SERVICE: 04/03/2019 RE: AlyssaMarty Dear Dr. Frederick; I had the pleasure to perform cardiac catheterization, coronary angioplasty and stenting on Mr. Shah at [facility] on April 03 and a full copy of the procedure note will be forwarded to you. In brief, he was found to have critical stenosis involving the mid right coronary artery. Underwent successful stenting of that vessel. I am hopeful that his procedure will stabilize his statin and thank you again for allowing to participate in this patient's care. Please feel fee to call for any questions. Sincerely, yours, MD MARIANA AdamsonL / SARAHN: [id number] /
[2019-04-03 14:39] VITALS: BMI 30.5
[2019-04-03] MEDS ORDERED: ATORVASTATIN 80 MG TAB PO SCH (21:00)
[2019-04-04 08:00] LABS: Calcium 9.1 mg/dL (8.4-10.2); Potassium 4.5 mmol/L (3.5-5.1)
[2019-04-04 08:09] VITALS: BP 110/63; PULSE 68; TEMP 97.3
[2019-04-04] MEDS ORDERED: ASPIRIN 81 MG PO SCH (09:00)
[2019-04-04] MEDS ORDERED: CLOPIDOGREL 75 MG TAB PO SCH (09:00)
[2019-04-04] MEDS ORDERED: EZETIMIBE 10 MG TAB PO SCH (09:00)
--- NOTE | 2019-04-04 09:49 | PN ---
PROGRESS NOTE Mr. Shah is a 58-year-old male who underwent cardiac catheterization yesterday, was found to have significant stenosis in the mid right coronary artery with patent stent in the left anterior descending artery, underwent stenting with the mid right coronary artery. He is feeling well this morning, denying any chest pain. His breathing has been stable. He denies any dizziness, palpitation, no nausea. He continues on aspirin once a day, Lipitor 80 mg daily, Plavix 75 mg daily, Zetia 10 mg daily. PHYSICAL EXAMINATION: Blood pressure 110/60 with a heart rate in the 60s. LUNGS: Clear. HEART: Regular rate and rhythm. S1, S2. No S3. No rub. ABDOMEN: Soft, nontender. EXTREMITIES: No edema. EKG revealed no acute changes. LAB DATA: Lab data revealed BUN and creatinine 15, 1.14, potassium 4.5. IMPRESSION: 1. Status post stenting of the right coronary artery. 2. Hyperlipidemia. 3. Prior stenting of the LAD. RECOMMENDATION: Patient will be discharged home today and followed as an outpatient. MMODL / SARAHN: [id number] /
== END 2019-04-04 09:37 | disposition home or self-care (01) ==
LOC: CATHCVL 07:57 → 3SCARD 12:49 → CATHCVL 04-04 09:37
PROVIDERS: ATTEND Internal Medicine Interventional Cardiology
DX: I25.110 Atherosclerotic heart disease of native coronary artery with unstable angina pectoris (principal); E78.2 Mixed hyperlipidemia; G47.33 Obstructive sleep apnea (adult) (pediatric); Z95.5 Presence of coronary angioplasty implant and graft; Z87.891 Personal history of nicotine dependence; Z79.82 Long term (current) use of aspirin; Z79.899 Other long term (current) drug therapy; Z88.6 Allergy status to analgesic agent; Z91.048 Other nonmedicinal substance allergy status
CPT/HCPCS: 93458; 80048; 85025; C9600; C1769 ×2; C1887; C1874; C1894; J2001; J3010; J0583; Q9967

== ENCOUNTER → 2019-04-15 | Outpatient (CLI) | payer BC ==
[2019-04-15 17:29] LABS: Chol/HDL Ratio 3.33
== END | disposition home or self-care (01) ==
LOC: LABWHC1 08:11
PROVIDERS: ATTEND Nurse Practitioner Adult Health
DX: E78.2 Mixed hyperlipidemia (principal)
CPT/HCPCS: 36415; 80061

== ENCOUNTER → 2020-02-07 | Outpatient (CLI) | payer BC ==
[2020-02-07 19:30] LABS: African American GFR (CKD) 76.3 (60.0-200.0); Albumin/Globulin Ratio 1.6 (1.60-3.17); Anion Gap 8.7 mmol/L (4.00-12.00); BUN/Creat Ratio 18.33 Ratio (12.00-20.00); Calcium 8.9 mg/dL (8.7-10.3); Carbon Dioxide 24.3 mmol/L (21.6-31.8); Chol/HDL Ratio 3.43; Globulin 2.5 g/dL (1.6-3.3); LDL Cholesterol,Calculated 61.2 mg/dL (0.0-131.0); Non-African American GFR(CKD) 65.8 (60.0-200.0); Potassium 4.4 mmol/L (3.5-5.5); Total Bilirubin 1.7 mg/dL (0.2-1.2); Total Protein 6.5 g/dL (6.2-8.2); VLDL Calculation 23.8 mg/dL (5.00-40.00)
== END | disposition home or self-care (01) ==
LOC: LABWHC1 08:18
PROVIDERS: ATTEND Internal Medicine Interventional Cardiology
DX: E78.2 Mixed hyperlipidemia (principal)
CPT/HCPCS: 36415; 80053; 80061

== ENCOUNTER → 2020-04-15 | Outpatient (CLI) | payer BC ==
--- NOTE | 2020-04-16 08:26 | CT ---
EXAMINATION TYPE: CT cervical spine wo con DATE OF EXAM: 04/15/2020 COMPARISON: 04/12/2017 HISTORY: Neck pain, no known injury CT DLP: 673.8 mGycm CONTRAST: None CT of the cervical spine is performed in the axial plane at 2 mm thick sections. Reconstructed image s in the coronal, and sagittal plane are reviewed on the computer. No acute fractures are evident. Vertebral body alignment is normal. Spina bifida occulta of C1 is present. There is loss of disc height C5-6, C6-7.. Schmorl's nodes in the T1 superior endplate. Milder loss of disc height is present C3-4 C4-5 Vertebral body heights are preserved. No spinal canal stenosis is evident Foraminal narrowing is present due to uncovertebral joint hypertrophy on the left at C4-5 bilaterally at C5-6 and C6-7 greater on the left. IMPRESSIONS: 1. Degenerative disc changes greatest at C5-6 C6-7. 2. Uncovertebral joint hypertrophy causing foraminal narrowing greatest at left C5-6
== END | disposition home or self-care (01) ==
LOC: RADCTMAIN 16:36
PROVIDERS: ATTEND Physical Medicine & Rehabilitation
DX: M48.02 Spinal stenosis, cervical region (principal); M50.122 Cervical disc disorder at C5-C6 level with radiculopathy
CPT/HCPCS: 72125

== ENCOUNTER 2020-07-28 10:28 | Emergency (ER) | payer BC ==
[2020-07-28 10:45] VITALS: BP 116/79; PULSE 98; RESP 18; TEMP 100
[2020-07-28] MEDS ORDERED: ACETAMINOPHEN TAB 325 MG TAB PO STA (10:59)
--- NOTE | 2020-07-28 12:15 | XR ---
EXAMINATION TYPE: XR chest 2V DATE OF EXAM: 07/28/2020 COMPARISON: 11/25/2017 HISTORY: 59-year-old male cough and fever TECHNIQUE: PA and lateral views FINDINGS: Heart normal size. Aorta and pulmonary vasculature within normal limits. Subtle patchy opacity periph franco of the right upper lobe and in the periphery of the left base. No pleural effusion. IMPRESSION: Subtle patchy infiltrate periphery of the right upper lobe and at the left base. Early pneumonia incl uding possibility of COVID pneumonia not excluded.
--- NOTE | 2020-07-28 12:21 | ED ---
General Adult HPI - General Chief complaint: Upper Respiratory Infection Stated complaint: Nausea/cough/congestion Time Seen by Provider: 07/28/20 10:47 Source: patient Mode of arrival: ambulatory Limitations: no limitations - History of Present Illness Initial comments: 59-year-old male presents to the emergency department with a chief complaint of body aches, cough and a fever. Patient reports he has developed the symptoms about 4 days ago. Does report a productive cough with white sputum production. He denies any chest pain or shortness of breath. He reports taking Tylenol occasionally for the fever. He also reports a sore throat and rhinorrhea. Denies any nausea vomiting or diarrhea. Denies any leg swelling. States he tested yesterday for Covid but he is waiting for the results for several more days. - Related Data Home Medications Medication Instructions Recorded Confirmed Clopidogrel [Plavix] 75 mg PO DAILY 04/01/19 04/03/19 Ezetimibe [Zetia] 10 mg PO DAILY 04/01/19 04/03/19 Previous Rx's Medication Instructions Recorded Nitroglycerin Sl Tabs [Nitrostat] 0.4 mg SUBLINGUAL Q5M PRN #1 bottle 11/27/17 Aspirin 81 mg PO DAILY chew 12/09/17 Atorvastatin [Lipitor] 80 mg PO HS #90 tab 12/09/17 Allergies Allergy/AdvReac Type Severity Reaction Status Date / Time aspirin Allergy Anaphylaxis Verified 07/28/20 10:45 Review of Systems ROS Statement: Those systems with pertinent positive or pertinent negative responses have been documented in the HPI. ROS Other: All systems not noted in ROS Statement are negative. Past Medical History Past Medical History: Coronary Artery Disease (CAD) Additional Past Medical History / Comment(s): recent hospitalization related to SOB w/exertion History of Any Multi-Drug Resistant Organisms: None Reported Past Surgical History: Heart Catheterization, Heart Catheterization With Stent, Orthopedic Surgery Additional Past Surgical History / Comment(s): Left shoulder surgery. 2 cardiac stents to LAD in 2018, new stent placed 04/03/19 in RCA Past Anesthesia/Blood Transfusion Reactions: No Reported Reaction Date of Last Stent Placement:: t Past Psychological History: No Psychological Hx Reported Smoking Status: Never smoker Past Alcohol Use History: Occasional Past Drug Use History: None Reported - Past Family History Father Family Medical History: Diabetes Mellitus Mother Additional Family Medical History / Comment(s): Emphsema. General Exam Limitations: no limitations General appearance: alert, in no apparent distress Head exam: Present: atraumatic, normocephalic, normal inspection Eye exam: Present: normal appearance, PERRL, EOMI Pupils: Present: normal accommodation ENT exam: Present: normal exam, normal oropharynx, mucous membranes moist, TM's normal bilaterally, normal external ear exam Neck exam: Present: normal inspection, full ROM. Absent: tenderness, lymphadenopathy Respiratory exam: Present: normal lung sounds bilaterally. Absent: respiratory distress Cardiovascular Exam: Present: regular rate, normal rhythm, normal heart sounds GI/Abdominal exam: Present: soft. Absent: distended, tenderness, guarding, rebound Extremities exam: Present: normal inspection, full ROM, normal capillary refill. Absent: tenderness, pedal edema, joint swelling Back exam: Present: normal inspection, full ROM. Absent: tenderness, CVA tenderness (R), CVA tenderness (L) Neurological exam: Present: alert, oriented X3, normal gait Psychiatric exam: Present: normal affect, normal mood Skin exam: Present: warm, dry, intact, normal color Course Vital Signs 07/28/20 10:43 Temperature 100.0 F H Pulse Rate 98 Respiratory 18 Rate Blood Pressure 116/79 O2 Sat by Pulse 98 Oximetry Medical Decision Making - Medical Decision Making 59 -year-old male presents to emergency Department with a chief complaint of cough bodyaches and fever. On physical examination, patient is resting comfortably and does not appear to be in any respiratory distress. He does have a temperature 100F. He was given Tylenol. He denied any chest pain or shortness of breath. States he never mentioned any shortness of breath in the triage sims. Patient was offered laboratory work and CT imaging, he declined. Patient is positive for coronavirus. Chest x-ray reveals pneumonia likely secondary to coronavirus. Patient was advised to take Tylenol if he develops a fever. Advised to quarantine for 10 days.. Strict return parameters were thoroughly discussed with patient was understanding and agreeable. Case discu ssed with Dr. Pruett. - Lab Data Lab Results 07/28/20 Range/Units 11:07 Coronavirus (PCR) Detected A (Not Detectd) Disposition Clinical Impression: Pneumonia due to coronavirus disease 2019 Disposition: HOME SELF-CARE Condition: Stable Instructions (If sedation given, give patient instructions): Coronavirus Disease 2019 (COVID-19) Additional Instructions: Take Tylenol if he develop a fever. Return to emergency department if symptoms worsen. Quarantine for the next 10 days. Is patient prescribed a controlled substance at d/c from ED?: No Referrals: Stephy Frederick MD [Primary Care Provider] - 1-2 days Time of Disposition: 12:21
== END 2020-07-28 12:41 | disposition home or self-care (01) ==
LOC: EC 10:28
DX: U07.1 COVID-19 (principal); J12.82 Pneumonia due to coronavirus disease 2019; Z79.899 Other long term (current) drug therapy; Z79.02 Long term (current) use of antithrombotics/antiplatelets; Z88.6 Allergy status to analgesic agent
CPT/HCPCS: 71046; 87635; 99283

== ENCOUNTER → 2021-03-03 | Outpatient (CLI) | payer BC ==
[2021-03-03 18:54] LABS: Chol/HDL Ratio 2.43 Ratio; HDL Cholesterol 43.2 mg/dL (40.00-60.00); Triglycerides 74.2 mg/dL (0.00-149.00); VLDL Calculation 14.84 mg/dL (5.00-40.00)
== END | disposition home or self-care (01) ==
LOC: LABWHC1 08:08
PROVIDERS: ATTEND Internal Medicine Interventional Cardiology
DX: E78.2 Mixed hyperlipidemia (principal)
CPT/HCPCS: 36415; 80061; 84450; 84460

== ENCOUNTER 2021-04-29 08:18 | Day surgery (SDC) | payer BC ==
[2021-04-26 18:25] VITALS: BMI 29.5
[~2021-04-29 08:18] MED LIST changes: -ALPRAZolam 0.25 MG TAB PO PRN; -ALPRAZolam 0.5 MG TAB PO PRN; -ATORVASTATIN 80 MG TAB PO STA; +LACTATED RINGERS 1,000 ML IV SCH; -NITROGLYCERIN SL TABS 0.4 MG TAB SUBLINGUAL PRN; -SODIUM CHLORIDE 0.9% 1,000 ML in EMPTY BAG 1 BAG IV ONE
[2021-04-29 09:03] VITALS: TEMP 98.2
[2021-04-29] MEDS ORDERED: PROPOFOL 10 MG/ML 20 ML VIAL IV ONE (09:53)
--- NOTE | 2021-04-29 10:14 | P.PCN ---
Date of Procedure: 04/29/21 Procedure(s) Performed: BRIEF HISTORY: Patient is a 60-year-old pleasant white male scheduled for an elective colonoscopy as a part of screening for colorectal neoplasia. PROCEDURE PERFORMED: Colonoscopy with snare polypectomy. PREOPERATIVE DIAGNOSIS: Screening for colon cancer. IV sedation per Anesthesia. PROCEDURE: After informed consent was obtained, the patient, was brought into the endoscopy unit. IV sedation was administered by Anesthesia under continuous monitoring. Digital rectal examination was normal. Initially the Olympus CF-160 flexible video colonoscope was then inserted in the rectum, gradually advanced into the cecum without any difficulty. Careful examination was performed as the scope was gradually being withdrawn. Ileocecal valve and the appendiceal orifice were visualized and appeared normal. Prep was excellent. Mucosa of the cecum normal. Ascending colon there was a 2 cm broad-based polyp that was removed by piecemeal snare polypectomy and complete polypectomy accomplished. Rest of the, ascending colon, transverse colon, descending colon, appeared normal. The sigmoid colon there was a 5 mm polyp removed by snare polypectomy. Rest of the sigmoid colon, and rectum appeared normal. Retroflexion was performed in the rectum and no lesions were seen. The patient tolerated the procedure well. IMPRESSION: 2 cm broad-based ascending colon polyp status post polypectomy 5 mm; polyp status post polypectomy RECOMMENDATIONS: Findings of this examination were discussed with the patient as well as his family. He was advised to follow with the biopsy results. If the biopsy results adenoma he can have a repeat colonoscopy in 3 years..
[2021-04-29 10:51] VITALS: BP 105/74; PULSE 61; RESP 16
== END 2021-04-29 11:05 | disposition home or self-care (01) ==
LOC: ORWHC2ENDO 08:18
PROVIDERS: ATTEND Internal Medicine Gastroenterology
DX: Z12.11 Encounter for screening for malignant neoplasm of colon (principal); D12.2 Benign neoplasm of ascending colon; D12.5 Benign neoplasm of sigmoid colon
CPT/HCPCS: 45385; 88305; J2704

== ENCOUNTER → 2021-08-28 | Outpatient (CLI) | payer BC ==
[2021-08-28 11:42] LABS: ALT 29 U/L (10-49); AST 32 U/L (14-35); African American GFR (CKD) 76.5 (60.0-200.0); Albumin 4.3 g/dL (3.8-4.9); Albumin/Globulin Ratio 1.78 (1.60-3.17); Alkaline Phosphatase 40 U/L (41-126); BUN/Creat Ratio 14.29 Ratio (12.00-20.00); Calcium 9.3 mg/dL (8.7-10.3); Carbon Dioxide 24.8 mmol/L (20.0-27.5); Chloride 107 mmol/L (96-109); Globulin 2.4 g/dL (1.6-3.3); Glucose 103 mg/dL (70-110); LDL Cholesterol,Calculated 62.4 mg/dL (0.0-131.0); Potassium 4.5 mmol/L (3.5-5.5); Sodium 141 mmol/L (135-145); Total Protein 6.7 g/dL (6.2-8.2)
== END | disposition home or self-care (01) ==
LOC: LABWHC1 08:08
PROVIDERS: ATTEND Nurse Practitioner Adult Health
DX: E78.2 Mixed hyperlipidemia (principal)
CPT/HCPCS: 36415; 80053; 80061

== ENCOUNTER → 2022-04-19 | Outpatient (CLI) | payer BC ==
[2022-04-19 14:53] LABS: ALT 26 U/L (10-49); AST 24 U/L (14-35); Chol/HDL Ratio 2.66 Ratio; LDL Cholesterol,Calculated 55.6 mg/dL (0.0-131.0); VLDL Calculation 19.28 mg/dL (5.00-40.00)
== END | disposition home or self-care (01) ==
LOC: LABWHC1 07:03
PROVIDERS: ATTEND Nurse Practitioner Adult Health
DX: E78.2 Mixed hyperlipidemia (principal)
CPT/HCPCS: 36415; 80061; 84450; 84460

== ENCOUNTER → 2022-06-02 | Outpatient (CLI) | payer BC ==
[2022-06-02 14:50] LABS: ALT 28 U/L (10-49); AST 25 U/L (14-35); African American GFR (CKD) 67.6 (60.0-200.0); Albumin 4.1 g/dL (3.8-4.9); Albumin/Globulin Ratio 1.76 (1.60-3.17); Alkaline Phosphatase 38 U/L (41-126); BUN/Creat Ratio 10.76 Ratio (12.00-20.00); Blood Urea Nitrogen 14.1 mg/dL (9.0-27.0); Calcium 9.4 mg/dL (8.7-10.3); Carbon Dioxide 26.3 mmol/L (20.0-27.5); Chloride 105 mmol/L (96-109); Chol/HDL Ratio 2.61 Ratio; Globulin 2.4 g/dL (1.6-3.3); Glucose 91 mg/dL (70-110); Non-African American GFR(CKD) 58.4 (60.0-200.0); Potassium 4.4 mmol/L (3.5-5.5); Sodium 142 mmol/L (135-145); Total Protein 6.5 g/dL (6.2-8.2)
== END | disposition home or self-care (01) ==
LOC: LABWHC1 07:05
PROVIDERS: ATTEND Nurse Practitioner Adult Health
DX: E78.2 Mixed hyperlipidemia (principal)
CPT/HCPCS: 36415; 80053; 80061

== ENCOUNTER → 2022-09-17 | Outpatient (CLI) | payer BC ==
[2022-09-17 13:33] LABS: Chol/HDL Ratio 2.43 Ratio; VLDL Calculation 14.08 mg/dL (5.00-40.00)
== END | disposition home or self-care (01) ==
LOC: LABWHC1 08:31
PROVIDERS: ATTEND Internal Medicine Interventional Cardiology
DX: E78.2 Mixed hyperlipidemia (principal)
CPT/HCPCS: 36415; 80061

== ENCOUNTER 2023-05-16 12:51 | Emergency (ER) | payer OTHER, BC ==
[2023-05-16] MEDS ORDERED: ORPHENADRINE 30 MG/ML 2 ML VIAL IM STA (13:19)
[2023-05-16] MEDS ORDERED: KETOROLAC 15 MG/ML 1 ML VIAL IM STA (13:19)
--- NOTE | 2023-05-16 13:34 | ED ---
Fall HPI - General Chief Complaint: Fall Stated Complaint: Fall-Back/Shoulder Injury Time Seen by Provider: 05/16/23 13:07 Source: patient, RN notes reviewed Mode of arrival: ambulatory Limitations: no limitations - History of Present Illness Initial Comments: This is a 62-year-old male who presents to the emergency department for a fall injury. Patient fell off of his semitruck approximately 5 days ago. He was 5-6 feet high. He fell backwards, injuring his head, neck, back, and left shoulder. Denies any loss of consciousness. He continues to experience headaches, neck tightness, as well as pain in the lower back and shoulder. He has tried taking Tylenol with no relief in symptoms. He was previously told to limit his use of ibuprofen due to being on blood thinners, however he has since discontinued blood thinners and only takes a baby ASA. MD Complaint: fall - Related Data Home Medications Medication Instructions Recorded Confirmed Ezetimibe [Zetia] 10 mg PO DAILY 04/01/19 06/03/22 Atorvastatin [Lipitor] 80 mg PO DAILY 04/26/21 06/03/22 Isosorbide Mononitrate ER [Imdur] 30 mg PO DAILY 06/03/22 06/03/22 Previous Rx's Medication Instructions Recorded Nitroglycerin Sl Tabs [Nitrostat] 0.4 mg SUBLINGUAL Q5M PRN #1 bottle 11/27/17 Aspirin 81 mg PO DAILY chew 12/09/17 Clopidogrel [Plavix] 75 mg PO DAILY #90 tablet 06/07/22 Lidocaine 5% Patch [Lidoderm 5% 1 patch TOPICAL DAILY PRN #30 patch 05/16/23 Patch] Naproxen [EC-Naproxen] 500 mg PO BID PRN #20 tab 05/16/23 methocarbamoL [Robaxin-750] 1,500 mg PO TID PRN #30 tab 05/16/23 Allergies Allergy/AdvReac Type Severity Reaction Status Date / Time aspirin Allergy Anaphylaxis Verified 05/16/23 13:02 Review of Systems ROS Statement: Those systems with pertinent positive or pertinent negative responses have been documented in the HPI. ROS Other: All systems not noted in ROS Statement are negative. Past Medical History Past Medical History: Coronary Artery Disease (CAD) Additional Past Medical History / Comment(s): Had Covid 06/2020. History of Any Multi-Drug Resistant Organisms: None Reported Past Surgical History: Heart Catheterization, Heart Catheterization With Stent, Orthopedic Surgery Additional Past Surgical History / Comment(s): Left shoulder surgery. 2 cardiac stents to LAD in 2018, 1 stent placed 04/03/19 in RCA, 1 stent 06/23 Past Anesthesia/Blood Transfusion Reactions: No Reported Reaction Date of Last Stent Placement:: 04/03/19 Past Psychological History: No Psychological Hx Reported Smoking Status: Former smoker Past Alcohol Use History: Occasional Past Drug Use History: None Reported - Past Family History Father Family Medical History: Diabetes Mellitus Mother Family Medical History: COPD Additional Family Medical History / Comment(s): Emphysema. General Exam Limitations: no limitations General appearance: alert, in no apparent distress Head exam: Present: atraumatic, normocephalic, normal inspection Eye exam: Present: normal appearance, PERRL, EOMI. Absent: scleral icterus, conjunctival injection, periorbital swelling Neck exam: Present: tenderness, full ROM Respiratory exam: Present: normal lung sounds bilaterally. Absent: respiratory distress, wheezes, rales, rhonchi, stridor Cardiovascular Exam: Present: regular rate, normal rhythm, normal heart sounds. Absent: systolic murmur, diastolic murmur, rubs, gallop, clicks Extremities exam: Present: other (Tenderness to palpation over the left shoulder with range of motion limited by pain. No overlying deformities. 2+ radial pulses.) Back exam: Present: tenderness (Lower back) Neurological exam: Present: alert, oriented X3, CN II-XII intact Psychiatric exam: Present: normal affect, normal mood Skin exam: Present: warm, dry, intact, normal color. Absent: rash Course Vital Signs 05/16/23 05/16/23 12:59 15:48 Temperature 98.0 F 97.8 F Pulse Rate 69 52 L Respiratory 18 18 Rate Blood Pressure 154/88 119/72 O2 Sat by Pulse 98 100 Oximetry Medical Decision Making - Medical Decision Making This is a 62-year-old male who presents to the emergency department for a fall injury. Was pt. sent in by a medical professional or institution? @ -No Did you speak to anyone other than the patient for history? @ -No Did you review nursing and triage notes? @ -Yes, and I agree, it is accurate with regards to the patient's symptoms. Were old charts reviewed? @ -No Differential Diagnosis? @ -Differential Musculoskeletal: Muscular strain, contusion, ligament sprain, fracture, arthritis, septic arthritis, bursitis, cellulitis, muscle spasm, nerve compression, DVT, arterial occlusion, herpes zoster, electrolyte abnormality, tumor.... This is not meant to be in all inclusive list EKG interpreted by me (3pts min.)? @ -Not obtained X-rays interpreted by me (1pt min.)? @ -X-ray of the left shoulder and lumbar spine obtained. My interpretation identifies no acute fractures. CT interpreted by me (1pt min.)? @ -Computed tomography scan of the brain and c-spine obtained. My interpretation identifies no evidence of an acute intracranial hemorrhage, skull fracture, or cervical spine fracture. U/S interpreted by me (1pt. min.)? @ -Not obtained What testing was considered but not performed? (CT, X-rays, U/S, labs)? Why? @ -None What meds were considered but not given? Why? @ -None Did you discuss the management of the patient with other professionals? @ -No Did you reconcile home meds? @ -No Was smoking cessation discussed for >3mins.? @ -No Was critical care preformed (if so, how long)? @ -No Were there social determinants of health that impacted care today? How? (Homelessness, low income, unemployed, alcoholism, drug addiction, transportation, low edu. Level, literacy, decrease access to med. care, penitentiary, re hab)? @ -No Was there de-escalation of care discussed even if they declined? (Discuss DNR or withdrawal of care, Hospice)? @ -No What co-morbidities impacted this encounter? (DM, HTN, Smoking, COPD, CAD, Cancer, CVA, Hep., AIDS, mental health diagnosis, sleep apnea, morbid obesity)? @ -None Was patient admitted / discharged? @ -Discharged. CT scan of the brain and c-spine obtained revealing no acute process. X-ray of the lumbar spine and left shoulder obtained demonstrating degenerative changes and signs of older injuries without any acute process. Symptoms well controlled in the emergency department and the patient was discharged home in stable condition. Rx for Naproxen, Robaxin, and lidocaine patches provided with dosing instructions reviewed. Undiagnosed new problem with uncertain prognosis? @ -None Drug Therapy requiring intensive monitoring for toxicity (Heparin, Nitro, Insulin, Cardizem)? @ -None Were any procedures done? @ -None Diagnosis/symptom? @ -Fall, head injury, lumbar contusion, left shoulder sprain Acute, or Chronic, or Acute on Chronic? @ -Acute Uncomplicated (without systemic symptoms) or Complicated (systemic symptoms)? @ -Uncomplicated Side effects of treatment? @ -None Exacerbation, Progression, or Severe Exacerbation] @ -Not applicable Poses a threat to life or bodily function? @ -The pain may impact his ability to function for the mean time. Return precautions reviewed in depth, the patient is instructed to return to the emergency department with any new, worsening, or concerning symptoms. Patient verbalized understanding. This case was discussed in detail with the attending ED physician, Dr. Garcia. Presentation, findings, and treatment plan discussed in detail as well. - Radiology Data Radiology results: report reviewed, image reviewed Disposition Clinical Impression: Fall, Shoulder contusion, Contusion of lumbar spinal region Disposition: HOME SELF-CARE Instructions (If sedation given, give patient instructions): Osteoarthritis (ED), Acute Low Back Pain (ED), Shoulder Sprain (ED) Additional Instructions: Return to the emergency department with any new, worsening, or concerning symptoms. Take the Naproxen twice daily as needed for pain. Do not take this with Ibuprofen or any other antiifnlammatories. You may take it with Tylenol. Take the Pillager sparingly when your pain is the most severe. Take the Robaxin as 1-2 tablets up to 3-4x daily. Be aware that the Robaxin and Pillager may make you drowsy. You can also apply the Lidocaine patches daily. Follow up with your primary care provider in 1-2 days. Prescriptions: Naproxen [EC-Naproxen] 500 mg PO BID PRN #20 tab PRN Reason: Pain Lidocaine 5% Patch [Lidoderm 5% Patch] 1 patch TOPICAL DAILY PRN #30 patch PRN Reason: Pain HYDROcodone/APAP 5-325MG [Pillager 5-325] 1 tab PO Q6HR PRN 3 Days #12 tab PRN Reason: Pain methocarbamoL [Robaxin-750] 1,500 mg PO TID PRN #30 tab PRN Reason: Pain Is patient prescribed a controlled substance at d/c from ED?: Yes When asked, does pt state using other controlled substances?: No If prescribed controlled substance>3 days was MAPS reviewed?: Prescribed <3 Days Referrals: Stephy Frederick MD [Primary Care Provider] - 1-2 days Time of Disposition: 15:38
[2023-05-16 13:48] VITALS: RESP 18
--- NOTE | 2023-05-16 14:22 | CT ---
EXAMINATION TYPE: CT brain cspine wo con DATE OF EXAM: 05/16/2023 COMPARISON: Cervical spine 04/15/2020 HISTORY: 62-year-old male head and neck pain after fall from truck, a few days ago CT DLP: 1430 mGycm Automated exposure control for dose reduction was used. Technique: Examination of the head was done in axial plane without intravenous contrast. Coronal and sagittal reconstructions performed. CT of the cervical spine was obtained in axial plane without intravenous injection of contrast mater ial. Coronal and sagittal reformatted images were obtained from the axial views for evaluation of f ractures, spinal alignment and canal. FINDINGS: Head: There is no evidence of acute intracranial hemorrhage, acute ischemic changes, mass, mass-effect, or extra-axial fluid collection. There is no effacement of cerebral sulci or basal subarachnoid cister ns. There is no hydrocephalus. There is no midline shift. Santa-white matter distinction is preserv ed. Mild patchy white matter hypodensities in both cervical hemispheres Moderate mucosal thickening left maxillary sinus and trace within the ethmoid air cells. Mastoid air cells are well pneumatized. Orbits and globes are intact. Cervical spine: No craniocervical junction abnormality, predental space widening, or prevertebral soft tissue swellin g. Degenerative change C1 dens articulation. No acute fracture seen of the cervical spine. Alignment is maintained. Posterior fusion defect of C1 posterior arch. Moderate bilateral neural foraminal stenoses at multiple levels, more severe on the left at C6-C7. Degenerative interbody ankylosis across C5-C7 levels. Disc osteophyte complexes are present. This may contribute to moderate spinal canal stenosis at C5-C6 and mild at C4-C5. Sagittal and coronal reformatted images confirm above findings. COMBINED IMPRESSION: 1. Mild patchy chronic small vessel ischemic disease. No acute intracranial abnormality seen. 2. Moderate spondylotic change throughout the cervical spine. No acute fracture or malalignment.
--- NOTE | 2023-05-16 14:27 | XR ---
EXAM TYPE: LUMBAR SPINE X RAY SERIES COMPARISON: NONE HISTORY: Pain TECHNIQUE: 4 views are submitted. FINDINGS: Alignment is anatomic. The pedicles are intact. The transverse processes are intact. There is face t arthropathy. There is a grade 1 anterolisthesis L4-L5. Degenerative changes L5-S1. Foraminal encroa chment L5-S1. IMPRESSION: 1. Degenerative disc disease L5-S1 with multilevel facet arthropathy. Grade 1 anterolisthesis of L4-L 5.
--- NOTE | 2023-05-16 14:29 | XR ---
EXAMINATION TYPE: XR shoulder complete LT DATE OF EXAM: 05/16/2023 COMPARISON: NONE HISTORY: Pain TECHNIQUE: Three views are submitted. FINDINGS: The osseous structures are intact. There is no acute fracture or dislocation. Mild/moderate hypertro phic arthropathy AC joint. There is a chronic-appearing hyperostosis or deformity of the lower margin or possibly posttraumatic remote basis. Mild glenohumeral joint arthropathy IMPRESSION: 1. AC joint arthropathy use osteopenia correlate injury. 2. Chronic appearing deformity of the lower margin distal left clavicle most likely these remote trau ma. No acute fracture
[2023-05-16] MEDS ORDERED: LIDOCAINE 4% PATCH TOPICAL ONE (14:37)
[2023-05-16] MEDS ORDERED: HYDROmorphone 1 MG/ML 1 ML SYRINGE IM STA (14:37)
[2023-05-16 16:08] VITALS: BP 119/72; PULSE 52; TEMP 97.8
== END 2023-05-16 15:53 | disposition home or self-care (01) ==
LOC: EC 12:51
DX: S43.402A Unspecified sprain of left shoulder joint, initial encounter (principal); S30.0XXA Contusion of lower back and pelvis, initial encounter; S09.90XA Unspecified injury of head, initial encounter; I25.10 Atherosclerotic heart disease of native coronary artery without angina pectoris; Z87.891 Personal history of nicotine dependence; Z88.8 Allergy status to other drugs, medicaments and biological substances; V58.2XXA Person on outside of pick-up truck or van injured in noncollision transport accident in nontraffic accident, initial encounter
CPT/HCPCS: 72100; 73030; 72125; 70450; 99284; 96372 ×3; J2360; J1170; J1885

== ENCOUNTER → 2023-06-20 | Outpatient (CLI) | payer BC ==
[2023-06-20 16:51] LABS: Chol/HDL Ratio 2.52 Ratio; LDL Cholesterol,Calculated 57.1 mg/dL (0.0-131.0); VLDL Calculation 15.18 mg/dL (5.00-40.00)
[2023-06-20 16:54] LABS: Albumin 4.4 g/dL (3.8-4.9); BUN/Creat Ratio 13.91 Ratio (12.00-20.00); Blood Urea Nitrogen 15.3 mg/dL (9.0-27.0); Calcium 9.6 mg/dL (8.7-10.3); Chloride 106 mmol/L (96-109); Globulin 2.4 g/dL (1.6-3.3); Glucose 96 mg/dL (70-110); Potassium 4.5 mmol/L (3.5-5.5); Sodium 140 mmol/L (135-145); Total Protein 6.8 g/dL (6.2-8.2)
[2023-06-20 16:55] LABS: ALT 33 U/L (10-49); AST 31 U/L (14-35); Albumin/Globulin Ratio 1.83 Ratio (1.60-3.17); Alkaline Phosphatase 40 U/L (41-126); Total Bilirubin 1.9 mg/dL (0.3-1.2)
== END | disposition home or self-care (01) ==
LOC: LABWHC1 09:30
PROVIDERS: ATTEND Internal Medicine Interventional Cardiology
DX: E78.2 Mixed hyperlipidemia (principal)
CPT/HCPCS: 36415; 80053; 80061